=== PATIENT | female | born 1965 | race Caucasian/White ===

== ENCOUNTER 2016-07-04 05:39 | Day surgery (SDC) | payer BC ==
[2016-06-29 17:07] LABS: BASOPHILS 0.2 %; BASOPHILS ABSOLUTE 0.01 10/3/uL (0.0-0.16); EOSINOPHILS 2.2 %; HEMATOCRIT 40.4 % (36.0-48.0); HEMOGLOBIN 14.2 g/dL (12.0-16.0); LYMPHOCYTES 33.8 %; LYMPHOCYTES ABSOLUTE 1.54 10/3/uL (0.67-4.30); MEAN CORPUS HGB CONC 35.1 g/dL (32.0-36.0); MEAN CORPUSCULAR HEMOGLOB 30.1 pg (26.0-34.0); MEAN CORPUSCULAR VOLUME 85.6 fL (80-100); MEAN PLATELET VOLUME 9.2 fL (9.2-13.0); MONOCYTES 9.6 %; MONOCYTES ABSOLUTE 0.44 10/3/uL (0.21-1.20); NEUTROPHILS 54.2 %; NEUTROPHILS ABSOLUTE 2.47 10/3/uL (2.02-8.40); PLATELET COUNT 237 10/3/uL (150-400); RBC DISTRIBUTION WIDTH 12.1 % (12.0-16.0); RED CELL COUNT 4.72 10/6/uL (4.0-5.6); WHITE BLOOD CELLS 4.6 10/3/uL (4.5-10.5)
[2016-06-29 17:08] LABS: MANUAL DIFF NO %
[2016-06-29 17:14] LABS: PARTIAL THROMBO TIME 26.1 SEC (22.5-37.2)
[2016-06-29 17:20] LABS: CALCIUM, SERUM 9.5 MG/DL (8.5-10.4); CHLORIDE, SERUM 106 MMOL/L (96-112); CO2 (CARBON DIOXIDE) 28 MMOL/L (24-34); GFR AFRICAN AMERICAN 99 ML/MIN (>=60); GFR NON AFRICAN AMERICAN 85 ML/MIN (>=60); GLUCOSE, SERUM 101 MG/DL (60-99); POTASSIUM, SERUM 3.8 MMOL/L (3.5-5.3); SODIUM, SERUM 141 MMOL/L (135-148)
[2016-06-29 17:21] LABS: BUN (BLOOD UREA NITROGEN) 14 MG/DL (6-23)
--- NOTE | ~2016-07-04 | OP ---
Record Of Operation [facility] [address] [place]. [address] NAME: LILLIAM RATLIFF : 63 STATUS : REG [facility] PAT#: [id number] AGE: 50 ADM/REG DATE : 07/04/16 MR#: [id number] REPORT SERV DATE: 07/04/16 DICTATED BY: JANESSA GREEN DATE: 07/04/16 REPORT STATUS : Draft TRANSCRIBED BY: MODL DATE: 07/04/16 DATE OF PROCEDURE: 07/04/2016 PREOPERATIVE DIAGNOSIS: 2.5 cm left thyroid nodule. POSTOPERATIVE DIAGNOSIS: 2.5 cm left thyroid nodule. PROCEDURE PERFORMED: Left thyroid lobectomy. SURGEON: Janessa Green M.D. EXHIBIT SPECIALIST: Bonita Wallace. ANESTHESIA: General. COMPLICATIONS: None. CONDITION: Stable to recovery. INDICATION: 50-year-old female, with a 2.5 cm left inferior pole thyroid nodule. She refused needle biopsy, due to anxiety, and elected to have this removed for surgical assessment and diagnosis. The risks, benefits, and alternatives were explained and she agreed. PROCEDURE IN DETAIL: The patient was identified in preoperative holding, taken back to the operating room, and placed supine on the operating room table. General anesthesia was established with a nerve integrity monitoring system endotracheal tube. It was placed using a glide scope to confirm electrode placement on vocal folds. The anterior tap test was positive. A time-out was called, and the patient and procedure were confirmed. A marking pen was used to hayes an incision in the anterior neck in a preexisting skin crease. It was infiltrated subcutaneously with 2 mL of 1% lidocaine with 1:100,000 epinephrine. She was then prepped and draped in standard fashion for the operation. Using 2.5x loupe magnification and headlight illumination, the operation commenced. A 15 blade was used to make the skin incision. Bovie cautery was used to elevate subplatysmal flaps and using a combination of Bovie cautery, bipolar, and Harmonic scalpel, the operation commenced. The strap muscles were divided in the midline and the left thyroid lobe was mobilized off the sternothyroid and sternohyoid muscles. The upper pole vessels were identified after developing the cricothyroid space. A Han clamp was used to retract the upper pole in an inferior medial direction and the upper pole vessels were secured with Harmonic scalpel. The gland was rotated out of the visceral compartment. There was some fibrosis related to a previous cervical spine surgery. The upper parathyroid was identified and preserved. The lower parathyroid was not directly visualized. There was a 2.5 cm nodule in the lower pole, it was not adherent to surrounding structures. It mobilized easily. The recurrent laryngeal nerve was identified and confirmed with the nerve stimulating probe. The gland was rotated off Ocasio's ligament and the anterior trachea was Record Of Operation [address] [address] NAME: LILLIAM RATLIFF : 63 STATUS : REG [facility] PAT#: [id number] AGE: 50 ADM/REG DATE : 07/04/16 MR#: [id number] REPORT SERV DATE: 07/04/16 DICTATED BY: JANESSA GREEN DATE: 07/04/16 REPORT STATUS : Draft TRANSCRIBED BY: MODL DATE: 07/04/16 transected at the isthmus with Harmonic scalpel. It was sent for frozen section. Frozen section showed follicular lesion, low probability of malignancy. The wound was irrigated with saline. Bipolar cautery used for hemostasis. The recurrent laryngeal nerve was stimulated with the nerve stimulating probe and an excellent response was noted. The strap muscles were reapproximated in the midline with two separate interrupted 3-0 Vicryl sutures, and then the wound was closed with 3-0 Vicryl suture, and a 5-0 running Monocryl in the platysma and subcuticular space respectively. The Steri-Strips were placed. The patient was awakened and taken to recovery in stable condition. PH/MODL Janessa Green M.D. / [id number] CC: Anton Acosta M.D.
[~2016-07-04 05:39] MED LIST: ALEVE220 MG PO; LOM PO; LUNESTA3 MG PO; TOPXL100 PO; VITAMIN D PO; ZANTAC150 MG PO; [UNRECOGNIZED DRUG - OTHER] PO
[2016-07-04 07:00] LABS: PTH (INTRAOPERATIVE) 79.3 PG/ML (10.0-65.0); PTH TAT 0 Hrs 20 Mins
== END 2016-07-04 13:15 | disposition home or self-care (01) ==
LOC: SDC 05:39
PROVIDERS: Specialist
PROC: 0GTG0ZZ Resection of Left Thyroid Gland Lobe, Open Approach (ICD-10-PCS; principal; 2016-07-04 06:45)
DX: D34 Benign neoplasm of thyroid gland (principal); I10 Essential (primary) hypertension; G43.909 Migraine, unspecified, not intractable, without status migrainosus; F41.9 Anxiety disorder, unspecified; Z90.710 Acquired absence of both cervix and uterus; Z90.49 Acquired absence of other specified parts of digestive tract; Z98.890 Other specified postprocedural states; Z88.5 Allergy status to narcotic agent; Z88.6 Allergy status to analgesic agent; Z88.8 Allergy status to other drugs, medicaments and biological substances
CPT/HCPCS: 71020; 80048; 82962; 83970; 85025; 85730; 88307; 88331; 93005; A9270-GY; J0690; J1170; J2250; J2405; J2710; J3010